=== PATIENT | male | born 1985 | race Caucasian/White ===

== ENCOUNTER 2018-01-05 16:09 | Emergency (ER) | payer MEDICAID ==
[~2018-01-05] VITALS: Ht 167.6 cm; Wt 69.4 kg
[2018-01-05 16:17] VITALS: BP 156/89; Ht 167.6 cm; Wt 69.4 kg
== END 2018-01-05 16:37 | disposition home or self-care (01) ==
LOC: ED 16:09
DX: S80.862A Insect bite (nonvenomous), left lower leg, initial encounter (principal); S80.861A Insect bite (nonvenomous), right lower leg, initial encounter; L03.115 Cellulitis of right lower limb; L03.116 Cellulitis of left lower limb; J45.909 Unspecified asthma, uncomplicated; W57.XXXA Bitten or stung by nonvenomous insect and other nonvenomous arthropods, initial encounter; Y93.89 Activity, other specified; Y92.89 Other specified places as the place of occurrence of the external cause; Y99.8 Other external cause status

== ENCOUNTER 2018-10-21 20:26 | Emergency (ER) | payer MEDICAID ==
[~2018-10-21] VITALS: Ht 167.6 cm; Wt 65.3 kg
[2018-10-21 20:37] VITALS: Ht 167.6 cm; Wt 65.3 kg
[2018-10-21 21:58] VITALS: BP 129/81
== END 2018-10-21 21:58 | disposition home or self-care (01) ==
LOC: ED 20:26
DX: R21 Rash and other nonspecific skin eruption (principal); G89.29 Other chronic pain; M25.562 Pain in left knee; M25.561 Pain in right knee; J45.909 Unspecified asthma, uncomplicated; Z98.890 Other specified postprocedural states
CPT/HCPCS: J7512